=== PATIENT | male | born 1985 | race African-American/Black ===

== ENCOUNTER 2017-06-24 13:12 | Emergency (ER) | payer OTHER ==
[~2017-06-24] VITALS: Ht 180.3 cm; Wt 81.8 kg
[2017-06-24 14:18] LABS: APPEARANCE,URINE CLOUDY (CLEAR); GLUCOSE, URINE (UA) NEGATIVE (NEGATIVE); KETONES,URINE NEGATIVE (NEGATIVE); LEUKOCYTE ESTERASE ,URINE MODERATE (NEGATIVE); OCCULT BLOOD,URINE NEGATIVE (NEGATIVE); PH,URINE 6.5 (5.0-8.0); PROTEIN,URINE NEGATIVE (NEGATIVE)
[2017-06-24 14:19] LABS: ADD UA MICROSCOPIC YES; RBC,URINE None Seen /HPF (0-2)
[2017-06-24 14:20] LABS: WBC,URINE 51-100 /HPF (0-5)
[2017-06-24] MEDS ORDERED: LIDOCAINE HCL/PF 1% 2 ML VIAL ONE (17:56)
[2017-06-24] MEDS ORDERED: CefTRIAXone SODIUM 1 GM/VIAL IM ONE (18:00)
[2017-06-24] MEDS ORDERED: AZITHROMYCIN 250 MG TABLET PO ONE (18:00)
[2017-06-24 18:03] VITALS: BP 133/74
[2017-06-29 03:06] LABS: GC DNA N.A. AMPLIFY Positive (Negative)
== END 2017-06-24 18:36 | disposition home or self-care (01) ==
LOC: EMS 13:14
DX: N34.2 Other urethritis (principal); F12.90 Cannabis use, unspecified, uncomplicated; Z88.0 Allergy status to penicillin
CPT/HCPCS: 81001; 87086; 87491; 87591; 96372; 99284; J0696; J3490